=== PATIENT | female | born 1945 | race Caucasian/White ===

== ENCOUNTER 2018-09-30 08:14 | Day surgery (SDC) | payer OTHER ==
[2018-09-29 11:11] LABS: Urine Appearance CLOUDY; Urine Bilirubin NEGATIVE (NEG); Urine Blood NEGATIVE (NEG); Urine Color YELLOW; Urine Glucose NEGATIVE (NEG); Urine Protein NEGATIVE (NEG); Urine Urobilinogen 0.2 mg/dL (0.2-1.0)
[2018-09-29 11:12] LABS: Urine Microscopic Reflex NO UMIC
[2018-09-29 11:17] LABS: Absolute Lymphocytes (CBC) 1.7 K/uL (0.7-4.9); Absolute Monocytes 0.4 K/uL (0.1-1.3); Absolute Neutrophil 4.7 K/uL (1.8-8.0); Basophils % 0.8 % (0-1.3); Eosinophils % 1.6 % (0-4.4); Hematocrit 41.9 % (36.0-45.0); Lymphocytes % 24.8 % (15.3-44.8); MCH 32.7 pg (27.0-35.0); MCV 95.4 fL (80-100); MPV 10.1 fL (7.6-11.3); Monocytes % 5.6 % (3.3-12.3)
[2018-09-29 11:27] LABS: Potassium 3.9 mmol/L (3.5-5.1)
--- NOTE | 2018-09-29 12:08 | RAD REPORT ---
EXAM DESCRIPTION: Ramos Collins And Ashly (2 Views)09/29/2018 12:03 pm CLINICAL HISTORY: Preop for hand surgery COMPARISON: None FINDINGS: A 1 centimeter nodular opacity overlies the right upper lobe. Remainder lungs appear clear of acute infiltrate. The heart is normal size IMPRESSION: 1 centimeter nodular opacity overlying the right upper lobe may represent a pulmonary no dule or confluence of ribs and vessels. CT chest is recommended
--- NOTE | 2018-09-29 12:10 | RAD REPORT ---
EXAM DESCRIPTION: RAD - Hand Right 3 View - 09/29/2018 12:03 pm CLINICAL HISTORY: Right hand pain FINDINGS: No fracture or dislocation is seen. Mild narrowing involves DIP and PIP joints. Mild erosion involves the fifth DIP joint. Mild osteoarthritis involves the first carpometacarpal joint.
--- NOTE | 2018-09-29 12:11 | RAD REPORT ---
EXAM DESCRIPTION: RAD -Hand Left 3 View - 09/29/2018 12:03 pm CLINICAL HISTORY: Left hand pain FINDINGS: No fracture or dislocation is seen. Moderate osteoarthritis involves the first carpometacarpal joint. Mild narrowing involves DIP and PIP joints. Bones appear osteoporotic.
--- NOTE | 2018-09-29 14:01 | EKG ---
Test Date: 2018-09-29 Test Time: 10:59:46 Dianeticist: ROCKY MEASUREMENT RESULTS: Intervals: Rate: 85 NJ: 126 QRSD: 76 QT: 350 QTc: 416 [place]: P: 78 NJ: 126 QRS: 70 T: 67 INTERPRETIVE STATEMENTS: Sinus rhythm with occasional premature ventricular complexes Nonspecific ST abnormality Abnormal ECG Compared to ECG 10/24/2005 15:15:00 Ventricular premature complex(es) now present ST (T wave) deviation still present Electronically Signed On 09-29-18 14:00:51 ASSISTANT PORTFOLIO MANAGER by Anselmo Hinton
--- OUTSIDE RECORDS SUMMARY | 2018-09-30 08:17 | XMS REPORT | Clinical Summary ---
:1945 Author Organization [employer] Address [address] [place] [address] Care Team Providers Name Role Phone Carolina Bowman MD Primary Care Provider Allergies Active Allergy Reactions Severity Noted Date Comments Codeine 08/21/2018 Hydrocodone Other (See Comments), GI Intolerance High 08/21/2018 Medications Medication Sig Dispensed Refills Start Date End Date Status levothyroxine Take 125 mcg by 0 Active (SYNTHROID, LEVOXYL) mouth every 125 mcg tablet morning. estradiol (ESTRACE) 0.5 Take 0.5 mg by 0 Active MG tablet mouth daily. liothyronine (CYTOMEL) Take 25 mcg by 0 Active 25 MCG tablet mouth daily. tiotropium (SPIRIVA) 18 Place 1 capsule 0 Active mcg per inhalation into inhaler and capsule inhale once daily. pyridoxine, vitamin B6, Take 100 mg by 0 Active (B-6) 100 MG tablet mouth daily. NON FORMULARY Take by mouth 0 Active once. multivitamin liquid Take 5 mL by 0 Active mouth daily. TURMERIC, BULK, MISC once. 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 Last Filed Vital Signs Vital Sign Reading Time Taken Blood Pressure 162/77 08/21/2018 2:48 PM CDT Pulse 87 08/21/2018 2:48 PM CDT Temperature 36.5 C (97.7 F) 08/12/2018 10:22 AM CDT Respiratory Rate 17 08/21/2018 2:48 PM CDT Oxygen Saturation 96% 08/21/2018 2:38 PM CDT Inhaled Oxygen Concentration - - Weight 78.5 kg (173 lb) 08/21/2018 1:35 PM CDT Height 168.9 cm (5' 6.5") 08/21/2018 1:35 PM CDT Body Mass Index 27.5 08/21/2018 1:35 PM CDT Plan of Treatment Health Maintenance Due Date Last Done Comments BREAST CANCER SCREENING 1997 COLON CANCER SCREENING 1997 SHINGRIX VACCINE (1 of 2) 1997 ZOSTER VACCINE 2007 PNEUMOCOCCAL POLYSACCHARIDE VACCINE AGE 65 AND OVER 2012 PNEUMOCOCCAL-13 2012 INFLUENZA VACCINE 06/18/2018 Procedures Procedure Name Priority Date/Time Associated Diagnosis Comments MRI BRAIN WO Routine 08/21/2018 3:00 Bulbar motor neuron Results for this CONTRAST PM CDT disease (HCC) procedure are in the results section. COPPER LEVEL, SERUM Routine 08/13/2018 1:52 Bulbar motor neuron Results for this PM CDT disease procedure are in the results section. ZINC LEVEL, SERUM Routine 08/13/2018 1:52 Bulbar motor neuron Results for this PM CDT disease procedure are in the results section. THYROID STIMULATING Routine 08/13/2018 1:52 Bulbar motor neuron Results for this HORMONE PM CDT disease procedure are in the results section. VITAMIN B12 LEVEL Routine 08/13/2018 1:52 Bulbar motor neuron Results for this PM CDT disease procedure are in the results section. SYPHILIS TREPONEMAL Routine 08/13/2018 1:52 Bulbar motor neuron Results for this IGG PM CDT disease procedure are in the results section. VITAMIN E LEVEL, Routine 08/13/2018 1:52 Bulbar motor neuron Results for this PLASMA OR SERUM PM CDT disease procedure are in the results section. RHEUMATOID FACTOR Routine 08/13/2018 1:52 Bulbar motor neuron Results for this PM CDT disease procedure are in the results section. ERLIN Routine 08/13/2018 1:52 Bulbar motor neuron Results for this PM CDT disease procedure are in the results section. MRI CERVICAL SPINE Routine 08/12/2018 11:56 Cervical spondylosis Results for this WO CONTRAST AM CDT with myelopathy procedure are in the results section. after 09/29/2017 Results MRI Brain Wo Contrast (08/21/2018 3:00 PM CDT) Narrative Performed At EXAMINATION: MRI BRAIN WO CONTRAST HM [facility] CLINICAL HISTORY: G12.20 Motor neuron diseaseunspecified, G12.20 COMPARISON:None TECHNIQUE: Multiplanar and multisequence MRI imaging of the brain was obtained without contrast. Intravenous conscious sedation was obtained with 1 mg Versed and 50 mcg of fentanyl. The patient was cont inuously monitored throughout the exam and her vital signs prior to, during and after the exam were documented in the nurse's notes. FINDINGS: There is no evidence of acute infarct, intracranial hemorrhage or mass, hydrocephalus or midline shift. There is nonspecific enlargement of the ventricles and extra-axial space and nonspecific white mat ter changes. The upper sella is partially empty. The left lateral ventricle is larger than the right. 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 I cannot normal pressure hydrocephalus on this exam although there is no definite evidence of normal pressure hydrocephalus. The orbits, sinuses and mastoid air cells do not show abnormality. The nasal septum is deviated towards the right. IMPRESSION: No acute findings in the brain. Chronic appearing changes in the brain. I can' t exclude normal pressure hydrocephalus on this exam although there is no definite evidence of normal pressure hydrocephalus. [id number] Procedure Note Interface, Radiology Results Incoming - 08/21/2018 3:23 PM CDT EXAMINATION: MRI BRAIN WO CONTRAST CLINICAL HISTORY: G12.20 Motor neuron disease unspecified, G12.20 COMPARISON: None TECHNIQUE: Multiplanar and multisequence MRI imaging of the brain was obtained without contrast. Intravenous conscious sedation was obtained with 1 mg Versed and 50 mcg of fentanyl. The patient was continuously monitored throughout the exam and her vital signs prior to, during and after the exam were documented in the nurse's notes. FINDINGS: There is no evidence of acute infarct, intracranial hemorrhage or mass, hydrocephalus or midline shift. There is nonspecific enlargement of the ventricles and extra-axial space and nonspecific white matter changes. The upper sella is partially empty. The left lateral ventricle is larger than the right. 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 I cannot normal pressure hydrocephalus on this exam although there is no definite evidence of normal pressure hydrocephalus. The orbits, sinuses and mastoid air cells do not show abnormality. The nasal septum is deviated towards the right. IMPRESSION: No acute findings in the brain. Chronic appearing changes in the brain. I can' t exclude normal pressure hydrocephalus on this exam although there is no definite evidence of normal pressure hydrocephalus. [facility]-[id number] Performing Organization Address City/[facility]/Zipcode Phone Number [facility] [address] [place] [address] Syphilis treponemal IgG (08/13/2018 1:52 PM CDT) Syphilis treponemal IgG Non-reactiveComment: Non-reactive [facility] DEPARTMENT OF Non-reactive: No PATHOLOGY AND GENOMIC serological evidence of MEDICINE Syphilis infection Specimen Serum Performing Organization Address [facility] Phone Number [facility] DEPARTMENT OF PATHOLOGY AND [address] [place] [id number] GENOMIC MEDICINE Copper level, serum (08/13/2018 1:52 PM CDT) Copper 139 80 - 155 ug/dL [facility] Comment: INTERPRETIVE INFORMATION: Copper, Serum or Plasma Serum copper may be elevated with infection, inflammation, stress, and copper supplementation. In females, elevated copper may also be caused by oral contraceptives and (concentrations may be elevated up to 3 times normal during the third trimester). Serum copper may be reduced by use of corticosteroids and zinc and by malnutrition or malabsorption. See Compliance Statement B at www.[employer]/cs Performed by [facility], [address] [place] [address], [place] [id number] www.[employer], Baltazar Hopkins MD - Lab. Director Specimen Blood Performing Organization Address City/[facility] Phone Number [facility] [address] [place] [address] Zinc level, serum (08/13/2018 1:52 PM CDT) Zinc 62 60 - 120 ug/dL [facility] Comment: INTERPRETIVE INFORMATION: Zinc, Serum or Plasma Circulating zinc concentrations are dependent on albumin status and are depressed with malnutrition. Zinc may also be lowered with infection, inflammation, stress, oral contraceptives, and . Zinc may be elevated with zinc supplementation or fasting. Elevated zinc concentrations may interfere with copper absorption. Test developed and characteristics determined by [facility]. See Compliance Statement B: [employer]/ Performed by [facility], [address] [place] [id number] [email or web address].[employer], Baltazar Hopkins MD - Lab. Director Specimen Blood Performing Organization Address [facility] Phone Number [facility] [address] [place] [address] Rheumatoid factor (08/13/2018 1:52 PM CDT) Rheumatoid factor <10 0 - 13 IU/mL [facility] DEPARTMENT OF PATHOLOGY AND GENOMIC MEDICINE Specimen Plasma specimen Performing Organization Address [facility] Phone Number [facility] DEPARTMENT OF PATHOLOGY AND [address] [place] [address] ERLIN (08/13/2018 1:52 PM CDT) ERLIN screen Negative Negative [facility] DEPARTMENT OF PATHOLOGY AND Comment: [facility] The ERLIN is negative, however, cytoplasmic staining was observed. Fluorescence in the cytoplasm may be seen in patients with polymyositis and dermatomyositis, primary biliary cirrhosis, scleroderma and systemic sclerosis, systemic lupus erythematosus, and autoimmune hepatitis. Clinical correlation is recommended. Specimen Blood Performing Organization Address [facility] Phone Number [facility] DEPARTMENT OF PATHOLOGY AND [address] [place] [address] Vitamin E level, plasma or serum (08/13/2018 1:52 PM CDT) Alpha-tocopherol mg/L 10.8 5.5 - 18.0 mg/L [facility] Comment: Test developed and characteristics determined by [facility]. See Compliance Statement B: [employer]/CS Gamma-tocopherol mg/L 0.5 0.0 - 6.0 mg/L [facility] Comment: Performed by [facility], [address], [place] [id number] www.[employer], Baltazar Hopkins MD - Lab. Director Specimen Plasma specimen Performing Organization Address [facility]/Zipcode Phone Number [facility] [address] [facility] [place] [address] Thyroid stimulating hormone (08/13/2018 1:52 PM CDT) TSH <0.01 (L) 0.27 - 4.20 uIU/mL [facility] DEPARTMENT OF PATHOLOGY AND [facility] Specimen Plasma specimen Performing Organization Address City/State/Zipcode Phone Number [facility] DEPARTMENT OF PATHOLOGY [address] [place] [address] AND [facility] Vitamin B12 level (08/13/2018 1:52 PM CDT) Vitamin B12 1,038 (H) 211 - 946 pg/mL [facility] DEPARTMENT OF PATHOLOGY Comment: AND GENOMIC MEDICINE Significant overlap exists between normal and deficiency states. However, most patients with deficiencies will have Serum B12 <200 pg/mL. Specimen Serum Performing Organization Address City/[facility]/Zipcode Phone Number [facility] DEPARTMENT OF PATHOLOGY AND [address] [place] [address] [facility] MRI Cervical Spine Wo Contrast (08/12/2018 11:56 AM CDT) Narrative Performed At EXAMINATION: MRI CERVICAL SPINE WO CONTRAST [facility] CLINICAL HISTORY: M47.12 Other spondylosis with myelopathycervical region, m47.12 COMPARISON:None TECHNIQUE: Multiplanar multisequence noncontrast enhanced examination was performed of the cervical spine. FINDINGS: Vertebral body heights are maintained. The cervicomedullary junction is unremarkable. No cord signal abnormality identified. No focal marrow lesions. No masses are present in the visualized prevertebral soft tissues. Cervical alignment is preserved with normal lordosis. There is no significant spondylolisthesis. Axial images through the disc spaces demonstrate the following: C1-C2: There is narrowing of the atlantoaxial interval with spurring. There is no significant stenosis. C2-C3: No significant posterior disc disease, spinal canal or neural foraminal stenosis. C3-C4: There is loss of disc height with posterior spondylosis with mild canal narrowing. Uncovertebral arthrosis and facet disease a results in mild right and gwro-lc-ejikprkd left foraminal narrowing. C4-C5: There is mild spondylosis with mild disc desiccation and bulge without stenosis at this level. C5-C6: There is loss of disc height with posterior spondylosis with mild canal narrowing to 8 mm. Uncovertebral arthrosis and facet disease a results in at least moderate bilateral foraminal narrowing. Correlate for C6 radiculopathies. C6-C7: There is posterior spondylosis without canal narrowing. The foramina are patent. C7-T1: No significant posterior disc disease, spinal canal or neural foraminal stenosis. At T3 there is mild chronic superior endplate depression. No acute osseous abnormality identified. IMPRESSION: There is multilevel spondylosis most prominent at C5-6 with at least moderate bilateral foraminal narrowing. Correlate for C6 radiculopathies. Other levels less significant spondylosis are detailed above. [facility]-[id number] Procedure Note Hm Interface, Radiology Results Incoming - 08/12/2018 2:52 PM CDT EXAMINATION: MRI CERVICAL SPINE WO CONTRAST CLINICAL HISTORY: M47.12 Other spondylosis with myelopathy cervical region, m47.12 COMPARISON: None TECHNIQUE: Multiplanar multisequence noncontrast enhanced examination was performed of the cervical spine. FINDINGS: Vertebral body heights are maintained. The cervicomedullary junction is unremarkable. No cord signal abnormality identified. No focal marrow lesions. No masses are present in the visualized prevertebral soft tissues. Cervical alignment is preserved with normal lordosis. There is no significant spondylolisthesis. Axial images through the disc spaces demonstrate the following: C1-C2: There is narrowing of the atlantoaxial interval with spurring. There is no significant stenosis. C2-C3: No significant posterior disc disease, spinal canal or neural foraminal stenosis. C3-C4: There is loss of disc height with posterior spondylosis with mild canal narrowing. Uncovertebral arthrosis and facet disease a results in mild right and glep-po-trfkymyf left foraminal narrowing. C4-C5: There is mild spondylosis with mild disc desiccation and bulge without stenosis at this level. C5-C6: There is loss of disc height with posterior spondylosis with mild canal narrowing to 8 mm. Uncovertebral arthrosis and facet disease a results in at least moderate bilateral foraminal narrowing. Correlate for C6 radiculopathies. C6-C7: There is posterior spondylosis without canal narrowing. The foramina are patent. C7-T1: No significant posterior disc disease, spinal canal or neural foraminal stenosis. At T3 there is mild chronic superior endplate depression. No acute osseous abnormality identified. IMPRESSION: There is multilevel spondylosis most prominent at C5-6 with at least moderate bilateral foraminal narrowing. Correlate for C6 radiculopathies. Other levels less significant spondylosis are detailed above. [facility]-[id number] Performing Organization Address City/State/Zipcode Phone Number [facility] [address] [place] [address] after 09/29/2017 Insurance Payer Benefit Plan / Group Subscriber ID Type Phone Address [employer]NA MEDICARE AETNA MEDICARE HMO/[facility] xxxxxxxx HMO Advance Directives Patient has advance care planning documents on file. For more information, please contact:Silvano Araya[address] [place] [address]
[2018-09-30] MEDS ORDERED: CEFAZOLIN/SWI 1gm 1 GM/10 ML SYR ONE (08:36)
[2018-09-30] MEDS ORDERED: Ringers Lactate 1,000 ML IV ONE (08:36)
[2018-09-30] MEDS ORDERED: FENTANYL CITR 100 MCG/2 ML ONE (10:14)
[2018-09-30] MEDS ORDERED: PROPOFOL 200 MG/20 ML VIAL IV ONE (10:14)
[2018-09-30] MEDS ORDERED: LIDOCAINE 1% MPF 2 ML AMPULE ONE (10:15)
[2018-09-30] MEDS: MEPERIDINE HCL 50 MG/ML AMP ONE ×3 (11:10→11:25)
--- NOTE | 2018-09-30 12:28 | OP ---
Surgeon: Emerson Lamb MD Rn Discharge: Tristan. Preoperative Diagnoses: Dupuytren contracture of the nodule of the left palm, trigger finger left mi ddle and left ring. Postoperative Diagnoses: Dupuytren contracture of the nodule of the left palm, trigger finger left m iddle and left ring. Procedures: 1.Fasciectomy in the palm on left with excision of A1 pulleys of the ring and middle finger. 2.Tenolysis of the superficialis profundus of the ring and middle finger. Anesthesia: General. Procedure In Detail: After satisfactory induction of general anesthesia, the hand was prepped with B etadine scrub, Betadine paint. Dry sterile drapes were placed in the usual manner. The arm was elev ated, exsanguinated with an Esmarch, tourniquet inflated to 250 mmHg. Hand was placed on the [place] table. A zigzag incision made over the palm surface extended to the carpal tunnel incision proximal ly and distally zigzagging down to include the pits from the palmar Dupuytren contracture and extendi ng toward the A1 pulleys of the middle finger. Flaps were elevated back to the skin level and then t he palmar fasciectomy was performed with a 15-blade. The nerve roots were identified as well as vasc ular supply and left intact. Dissected down distally all the way to the A1 pulleys. The palmar fasc iectomy was done first and then the A1 pulleys were released in the middle and ring fingers. The ten dons were placed through a range of motion. At that time, underwent tenosynovectomy because there we re dense adhesions between the superficialis and profunda of the finger. After this was done, tourni quet released. Electrocautery was used for hemostasis, and the wound was closed with 4-0 Prolene lawanda tical mattress, half buried mattress simple sutures. Dressed with Xeroform, 2-inch Jose Manuel, Kerlix. The pat ient tolerated the procedure well. SHUKRI/JOE Voice ID: [id number] Report ID: [id number]
== END 2018-09-30 12:45 | disposition home or self-care (01) ==
LOC: OR 08:14
PROVIDERS: ATTEND Specialist
PROC: 0LN80ZZ Release Left Hand Tendon, Open Approach (ICD-10-PCS; 2018-09-30)
PROC: 0LN80ZZ Release Left Hand Tendon, Open Approach (ICD-10-PCS; 2018-09-30)
PROC: 0LN80ZZ Release Left Hand Tendon, Open Approach (ICD-10-PCS; 2018-09-30)
PROC: 0JNK0ZZ Release Left Hand Subcutaneous Tissue and Fascia, Open Approach (ICD-10-PCS; principal; 2018-09-30 09:45)
PROC: 0LN80ZZ Release Left Hand Tendon, Open Approach (ICD-10-PCS; 2018-09-30 09:45)
DX: M65.332 Trigger finger, left middle finger (principal); M65.342 Trigger finger, left ring finger; M72.0 Palmar fascial fibromatosis [Dupuytren]; J44.9 Chronic obstructive pulmonary disease, unspecified; E05.00 Thyrotoxicosis with diffuse goiter without thyrotoxic crisis or storm; G12.21 Amyotrophic lateral sclerosis; Z88.6 Allergy status to analgesic agent
CPT/HCPCS: 26045; 26055 ×2; 26440 ×2; 36415; 71046; 73130 ×2; 80048; 81003; 85025; 88304; 93005; J0690; J2001; J2175; J2704; J3010; 88305

== ENCOUNTER 2018-10-04 17:31 | Emergency (ER) | payer OTHER ==
--- OUTSIDE RECORDS SUMMARY | 2018-10-04 17:33 | XMS REPORT | Clinical Summary ---
:1945 Author Organization [facility] Address [address] [place] [address] Care Team Providers Name Role Phone Carolina [...] Cervical spondylosis with myelopathy (Primary Dx) after 10/03/2017 Social History Tobacco Use Types Packs/Day Years [...] procedure are in the results section. after 10/03/2017 Results MRI Brain Wo Contrast (08/21/2018 3:00 [...] no definite evidence of normal pressure hydrocephalus. [id number] Procedure Note Interface, Radiology Results Incoming - [...] no definite evidence of normal pressure hydrocephalus. [facility]-[id number] Performing Organization Address City/[facility]/Zipcode Phone Number [facility] [address] [place] [address] Syphilis treponemal IgG (08/13/2018 1:52 PM CDT) Syphilis treponemal IgG Non-reactiveComment: Non-reactive [facility] DEPARTMENT OF Non-reactive: No PATHOLOGY AND GENOMIC serological evidence of MEDICINE Syphilis infection Specimen Serum Performing Organization Address [facility] Cent[facility] Phone Number [facility] DEPARTMENT OF PATHOLOGY AND [address] [place] [id number] GENOMIC MEDICINE Copper level, serum (08/13/2018 1:52 PM CDT) Copper 139 80 - 155 ug/dL [facility] Comment: INTERPRETIVE INFORMATION: Copper, Serum or [...] or malabsorption. See Compliance Statement B at [email or web address] Performed by [facility], [address], [place] [id number] www.[email or web address], Baltazar Hopkins MD - Lab. Director Specimen Blood Performing Organization Address City/[facility] Centercode Phone Number [facility] [address] [place] [address] Zinc level, serum (08/13/2018 1:52 PM CDT) [...] absorption. Test developed and characteristics determined by [facility]. See Compliance Statement B: Zayo/ Performed by [facility], [address] [place] [id number] www.[email or web address], Baltazar Hopkins MD - Lab. Director Specimen Blood Performing Organization Address [facility] Phone Number [facility] [address] [place] [address] Rheumatoid factor (08/13/2018 1:52 PM CDT) Rheumatoid factor <10 0 - 13 IU/mL [facility] DEPARTMENT OF PATHOLOGY AND GENOMIC MEDICINE Specimen Plasma specimen Performing Organization Address [facility] Phone Number [facility] DEPARTMENT OF PATHOLOGY AND [address] [place] [address] ERLIN (08/13/2018 1:52 PM CDT) ERLIN screen Negative Negative [facility] DEPARTMENT OF PATHOLOGY AND Comment: [facility] The ERLIN is negative, however, cytoplasmic staining was observed. Fluorescence in the cytoplasm may be seen in patients with polymyositis and dermatomyositis, primary biliary cirrhosis, scleroderma and systemic sclerosis, systemic lupus erythematosus, and autoimmune hepatitis. Clinical correlation is recommended. Specimen Blood Performing Organization Address [facility] Phone Number [facility] DEPARTMENT OF PATHOLOGY AND [address] [place] [address] Vitamin E level, plasma or serum (08/13/2018 1:52 PM CDT) Alpha-tocopherol mg/L 10.8 5.5 - 18.0 mg/L [facility] Comment: Test developed and characteristics determined by [facility]. See Compliance Statement B: [employer].Dr. TATTOFF/CS Gamma-tocopherol mg/L 0.5 0.0 - 6.0 mg/L [facility] Comment: Performed by [facility], [address], [place] [id number] www.[email or web address], Baltazar Hopkins MD - Lab. Director Specimen Plasma specimen Performing Organization Address [facility]/Zipcode Phone Number [facility] [address] [facility] [place] [address] Thyroid stimulating hormone (08/13/2018 1:52 PM CDT) TSH <0.01 (L) 0.27 - 4.20 uIU/mL [facility] DEPARTMENT OF PATHOLOGY AND [facility] MED[facility]INE Specimen Plasma specimen Performing Organization Address City/State/Zipcode Phone Number [facility] DEPARTMENT OF PATHOLOGY [address] [place] [address] AND [facility] Vitamin B12 level (08/13/2018 1:52 PM CDT) Vitamin B12 1,038 (H) 211 - 946 pg/mL [facility] DEPARTMENT OF PATHOLOGY Comment: AND GENOMIC MEDICINE Significant overlap exists between normal and deficiency states. However, most patients with deficiencies will have Serum B12 <200 pg/mL. Specimen Serum Performing Organization Address City/[facility]/Zipcode Phone Number [facility] DEPARTMENT OF PATHOLOGY AND [address] [place] [address] [facility] MRI Cervical Spine Wo Contrast (08/12/2018 11:56 [...] disease a results in mild right and [id number] left foraminal narrowing. C4-C5: There is mild [...] levels less significant spondylosis are detailed above. [facility]-[id number] Procedure Note Hm Interface, Radiology Results Incoming [...] disease a results in mild right and pwkr-wj-rtdopyns left foraminal narrowing. C4-C5: There is mild [...] levels less significant spondylosis are detailed above. [facility]-[id number] Performing Organization Address City/State/Zipcode Phone Number [facility] [address] [place] [address] after 10/03/2017 Insurance Payer Benefit Plan / Group Subscriber ID Type Phone Address A[employer]NA MEDICARE AETNA MEDICARE HMO/PPO [facility] xxxxxxxx HMO Advance Directives Patient has advance care planning documents on file. For more information, please contact:Silvano Araya[address] [place] [address]
[2018-10-04] MEDS ORDERED: ONDANSETRON 4 MG/2 ML VIAL ONE (18:37)
[2018-10-04] MEDS ORDERED: MORPHINE 4 MG/ML SYR ONE (18:37)
--- NOTE | 2018-10-04 18:39 | RAD REPORT ---
EXAM DESCRIPTION: RAD - Chest Single View - 10/04/2018 6:33 pm CLINICAL HISTORY: abdominal pain Chest pain. COMPARISON: Chest Pa And Lat (2 Views) dated 09/29/2018 FINDINGS: Portable technique limits examination quality. Diffuse emphysema is present. May not previously noted in the right upper lobe appears similar to viraj or radiograph. The heart is normal in size. No displaced fractures. IMPRESSION: Prominent COPD.
[2018-10-04 18:45] LABS: Absolute Lymphocytes (CBC) 0.7 K/uL (0.7-4.9); Absolute Monocytes 0.6 K/uL (0.1-1.3); Absolute Neutrophil 10.3 K/uL (1.8-8.0); Basophils % 0.9 % (0-1.3); Eosinophils % 0.2 % (0-4.4); Lymphocytes % 5.8 % (15.3-44.8); MCH 32.6 pg (27.0-35.0); MCV 95.4 fL (80-100); MPV 9.2 fL (7.6-11.3); Monocytes % 5.4 % (3.3-12.3); RBC Red Blood Cell Count 4.09 M/uL (3.86-4.86)
[2018-10-04 19:04] LABS: Protime INR 1.15
[2018-10-04 19:13] LABS: ALT/SGPT 23 U/L (12-78); AST/SGOT 15 U/L (15-37); Albumin 3.3 g/dL (3.4-5.0); Alkaline Phosphatase 116 U/L (45-117); BUN Blood Urea Nitrogen 19 mg/dL (7-18); Bicarbonate 25 mmol/L (21-32); Bilirubin Direct 0.2 mg/dL (0-0.2); Bilirubin Total 0.7 mg/dL (0.2-1.0); Glucose Level 113 mg/dL (74-106); Lipase 172 U/L (73-393); Magnesium 1.7 mg/dL (1.8-2.4); Potassium 3.5 mmol/L (3.5-5.1); Protein, Total 6.7 g/dL (6.4-8.2); Sodium Level 139 mmol/L (136-145)
[2018-10-04] MEDS ORDERED: LORazepam 2 MG/ML VIAL ONE (19:49)
[2018-10-04] MEDS ORDERED: MAGNESIUM SULFATE 1 gm IVPB 1 GM/100 ML BAG IV ONE (19:49)
[2018-10-04] MEDS ORDERED: NA CHLORIDE 0.9% 1,000 ML ONE (19:49)
--- NOTE | 2018-10-04 21:04 | RAD REPORT ---
EXAM DESCRIPTION: CTAbdomen Pelvis W Contrast - 10/04/2018 8:47 pm CLINICAL HISTORY: Abdominal pain. CONSTIPATION COMPARISON: No comparisons TECHNIQUE: Biphasic CT imaging of the abdomen and pelvis was performed with 100 ml non-ionic IV cont rast. All CT scans are performed using dose optimization technique as appropriate and may include automated exposure control or mA/KV adjustment according to patient size. FINDINGS: The lung bases are clear.Small hiatal hernia. The liver, spleen, pancreas, adrenal glands and kidneys are within normal limits. No bowel obstruction, free air, free fluid or abscess. A large amount of stool is retained in the rec doug. The appendix is not identified as a discrete structure, however, no secondary findings of append icitis are identified. No evidence of significant lymphadenopathy. Lower lumbar degenerative changes are present. IMPRESSION: Rectal fecal impaction is suspected.
[2018-10-04] MEDS ORDERED: LIDOCAINE VISCOUS 2% SOLN 15 ML UDC ONE (21:19)
--- NOTE | 2018-10-04 21:43 | EDPHYS ---
Physician Documentation [facility] Name: Val Parks Age: 72 yrs Sex: Female : 1945 Arrival Date: 10/04/2018 Time: 17:35 Bed 13 Private MD: Carolina Bowman ED Physician Lux Merchant HPI: 10/04 18:15 This 72 yrs old Female presents to ER via Wheelchair with complaints of cp Constipation. 18:15 The patient presents to the emergency department with bleeding from the rectum/anus, cp pain in the rectal area, that is moderate. 18:15 Onset: The symptoms/episode began/occurred gradually. cp 18:15 Associate signs and symptoms: Pertinent positives: constipation, blood in stool, cp Pertinent negatives: abdominal pain, urinary retention. Patient reports having hand surgery this past Saturday and since surgery has been taking prescribed hydrocodone. Patient reports no bowel movement since surgery and feels like she has stool impaction in rectum. Patient reports noticing liquid stool with blood. Historical: - Allergies: 17:40 Codeine; la1 - PMHx: 17:40 None; la1 - Immunization history:: Adult Immunizations up to date. - Social history:: Smoking status: Patient/guardian denies using tobacco. - Ebola Screening: : No symptoms or risks identified at this time. ROS: 18:20 Constitutional: Negative for chills, fever, poor PO intake. cp 18:20 Eyes: Negative for injury, pain, redness, and discharge. cp 18:20 ENT: Negative for drainage from ear(s), ear pain, sore throat, difficulty swallowing, difficulty handling secretions. 18:20 Cardiovascular: Negative for chest pain. 18:20 Respiratory: Negative for cough, shortness of breath, wheezing. 18:20 Abdomen/GI: Positive for constipation, rectal bleeding, Negative for abdominal pain, nausea, vomiting, black/tarry stool. 18:20 Back: Negative for pain at rest, pain with movement. 18:20 : Negative for urinary symptoms. 18:20 Skin: Negative for cellulitis, rash. 18:20 Neuro: Negative for altered mental status, headache, syncope, near syncope, weakness. 18:20 All other systems are negative. Exam: 18:28 Constitutional: The patient appears in no acute distress, alert, awake, cp non-diaphoretic, non-toxic, well developed, well nourished, uncomfortable. 18:28 Head/Face: Normocephalic, atraumatic. cp 18:28 Eyes: Periorbital structures: appear normal, Conjunctiva: normal, no exudate, no injection, Sclera: no appreciated abnormality, Lids and lashes: appear normal, bilaterally. 18:28 ENT: External ear(s): are unremarkable, Nose: is normal, Mouth: Lips: moist, Oral mucosa: pink and intact, moist, Posterior pharynx: is normal, airway is patent, no erythema, no exudate, Voice: is normal. 18:28 Neck: ROM/movement: is normal, is supple, without pain, no range of motions limitations, no nuchal rigidity. 18:28 Chest/axilla: Inspection: normal, Palpation: is normal, no crepitus, no tenderness. 18:28 Cardiovascular: Rate: tachycardic, Rhythm: regular, Edema: is not appreciated, JVD: is not appreciated. 18:28 Respiratory: the patient does not display signs of respiratory distress, Respirations: normal, no use of accessory muscles, no retractions, no splinting, no tachypnea, labored breathing, is not present, Breath sounds: are clear throughout, no decreased breath sounds, no stridor, no wheezing. 18:28 Abdomen/GI: Inspection: abdomen appears normal, Bowel sounds: active, all quadrants, Palpation: soft, in all quadrants, mild abdominal tenderness, in all quadrants, rebound tenderness, is not appreciated, voluntary guarding, is not appreciated, involuntary guarding, is not appreciated, Rectal exam: Stool: brown, guaiac positive, hemorrhoid(s), external, with inflammation, with pain, fecal impaction, that is moderate, the exam is chaperoned by the nurse. 18:28 Back: pain, is absent, ROM is normal. 18:28 Skin: cellulitis, is not appreciated, no rash present. 18:28 Neuro: Orientation: to person, place \T\ time. Mentation: is normal, Cerebellar function: is grossly normal, Motor: moves all fours, strength is normal, Sensation: is normal. Vital Signs: 17:40 BP 157 / 81; Pulse 125; Resp 18; Temp 97.3; Pulse Ox 98% on R/A; la1 18:42 BP 148 / 80; Pulse 120; Resp 18; Pulse Ox 96% on R/A; hj 19:42 BP 139 / 82; Pulse 114; Resp 18; Pulse Ox 95% on R/A; jb4 20:59 BP 113 / 66; Pulse 110; Resp 16; Pulse Ox 93% on R/A; jb4 21:35 BP 128 / 65; Pulse 109; Resp 16; Pulse Ox 95% on R/A; jb4 MDM: 17:43 Patient medically screened. cp 21:40 Data reviewed: vital signs, nurses notes, lab test result(s), radiologic studies, CT cp scan. 21:40 Counseling: I had a detailed discussion with the patient and/or guardian regarding: the cp historical points, exam findings, and any diagnostic results supporting the discharge/admit diagnosis, lab results, radiology results, to return to the emergency department if symptoms worsen or persist or if there are any questions or concerns that arise at home. Response to treatment: the patient's symptoms have markedly improved after treatment, VSS. Patient with BM while in ED after digital disimpaction. Will discharge to home for continued monitoring. 10/04 18:09 Order name: Basic Metabolic Panel 10/04 18:09 Order name: CBC with Diff; Complete Time: 19:25 10/04 19:25 Interpretation: Normal except: WBC 11.7; PLT 121; FLORI% 87.7; LYM% 5.8; NEUT A 10.3. 10/04 18:09 Order name: Creatinine for Radiology; Complete Time: 19:25 10/04 18:09 Order name: Hepatic Function; Complete Time: 19:25 10/04 19:27 Interpretation: Normal except: ALB 3.3; A/G 1.0. 10/04 18:09 Order name: Lipase; Complete Time: 19:25 cp 10/04 18:09 Order name: PT-INR; Complete Time: 19:25 10/04 19:27 Interpretation: PT 13.6; Reviewed. 10/04 18:09 Order name: XRAY Chest (1 view); Complete Time: 19:25 10/04 18:09 Order name: Ptt, Activated; Complete Time: 19:25 10/04 18:09 Order name: Magnesium; Complete Time: 19:25 10/04 18:10 Order name: Basic Metabolic Panel; Complete Time: 19:25 EDMS 10/04 19:27 Interpretation: Normal except: GLUC 113; BUN 19. cp 10/04 18:21 Order name: Occult Blood--Ancillary; Complete Time: 21:07 aa5 10/04 18:21 Order name: CT Abd/Pelvis - W/Contrast: give oral contrast; Complete Time: 21:07 cp 10/04 18:09 Order name: IV Saline Lock; Complete Time: 18:20 cp 10/04 18:09 Order name: Labs collected and sent; Complete Time: 18:20 cp Administered Medications: 18:35 Drug: Zofran 4 mg Route: IVP; Site: right antecubital; hj 19:07 Follow up: Response: No adverse reaction; Pain is decreased jb4 18:35 Drug: morphine 2 mg Route: IVP; Site: right antecubital; hj 19:08 Follow up: Response: No adverse reaction; Pain is decreased jb4 19:58 Drug: Magnesium Sulfate 1 grams Route: IVPB; Infused Over: 1 hrs; Site: right jb4 antecubital; 21:00 Follow up: Response: No adverse reaction; IV Status: Completed infusion jb4 19:59 Drug: NS 0.9% 500 ml Route: IV; Rate: bolus; Site: right antecubital; jb4 20:30 Follow up: Response: No adverse reaction; IV Status: Completed infusion jb4 20:15 Drug: NS 0.9% 1000 ml Route: IV; Rate: 100 ml/hr; Site: right antecubital; jb4 21:34 Follow up: Response: No adverse reaction; IV Status: Completed infusion jb4 20:30 Drug: Ativan 0.5 mg Route: IVP; Site: right antecubital; jb4 21:35 Follow up: Response: No adverse reaction; Anxiety decreased jb4 21:27 Drug: Lidocaine Gel 2 % 1 ea Volume: 15 ml; Route: Mucous Membrane; jb4 21:35 Follow up: Response: No adverse reaction jb4 21:33 Drug: NS 0.9% 500 ml Route: IV; Rate: bolus; Site: right antecubital; jb4 21:59 Follow up: Response: No adverse reaction; IV Status: Completed infusion jb4 21:53 Drug: Anusol-HC 25 mg 25 mg Route: NH; jb4 21:53 Follow up: Response: No adverse reaction jb4 Point of Care Testing: Guaiac: 18:20 Stool Guaiac: Positive; Stool Hemoccult Control: Pass; aa5 18:20 Completed by SALLY Syed. External hemorrhoid was noted. aa5 Disposition: 10/04/18 21:41 Discharged to Home. Impression: Fecal impaction. - Condition is Stable. - Discharge Instructions: Constipation, Adult, Hemorrhoids, Fecal Impaction. - Prescriptions for Miralax 17 gram/dose Oral - take 1 packet by ORAL route once daily for 14-21 days dilute powder in 8 ounces of water or juice; 20 packet. - Medication Reconciliation Form, Thank You Letter, Antibiotic Education, Prescription Opioid Use form. - Follow up: Private Physician; When: 1 - 2 days; Reason: Recheck today's complaints. - Problem is new. - Symptoms have improved. Addendum: 10/06/2018 11:10 Co-signature as Attending Physician, Lux Merchant MD. g s Signatures: Dispatcher [employer] EDMS Rodríguez Calix RN RN la1 Shyam Bee RN RN Kwesi Chu PA PA cp Bryson, James RN RN jb4 Lux Merchant MD MD gs Corrections: (The following items were deleted from the chart) 10/04 22:02 21:41 10/04/2018 21:41 Discharged to Home. Impression: Fecal impaction. Condition is jb4 Stable. Forms are Medication Reconciliation Form, Thank You Letter, Antibiotic Education, Prescription Opioid Use. Follow up: Private Physician; When: 1 - 2 days; Reason: Recheck today's complaints. Problem is new. Symptoms have improved. cp
--- NOTE | 2018-10-04 21:43 | ER ---
Nurse's Notes [facility] Name: Val Parks Age: 72 yrs Sex: Female : 1945 Arrival Date: 10/04/2018 Time: 17:35 Bed 13 Private MD: Carolina Bowman Diagnosis: Fecal impaction Presentation: 10/04 17:39 Presenting complaint: Patient states: I had hand surgery on Saturday and have been on la1 norco, I have not had a BM since then and now I am just having small amounts of blood come out. Pt denies vomiting. reports she feels like the stool is right at her rectum. Transition of care: patient was not received from another setting of care. Onset of symptoms was October 04, 2018. Risk Assessment: Do you want to hurt yourself or someone else? Patient reports no desire to harm self or others. Initial Sepsis Screen: Does the patient meet any 2 criteria? No. Patient's initial sepsis screen is negative. Does the patient have a suspected source of infection? No. Patient's initial sepsis screen is negative. Care prior to arrival: None. 17:39 Method Of Arrival: Wheelchair la1 17:39 Acuity: ZOHRA 3 la1 Historical: - Allergies: 17:40 Codeine; la1 - PMHx: 17:40 None; la1 - Immunization history:: Adult Immunizations up to date. - Social history:: Smoking status: Patient/guardian denies using tobacco. - Ebola Screening: : No symptoms or risks identified at this time. Screenin:47 Abuse screen: Denies threats or abuse. Denies injuries from another. Nutritional hj screening: No deficits noted. Tuberculosis screening: No symptoms or risk factors identified. Fall Risk None identified. Assessment: 17:46 General: Appears in no apparent distress. uncomfortable, Behavior is calm, cooperative, hj appropriate for age. Pain: Denies pain. Neuro: Level of Consciousness is awake, alert, obeys commands, Oriented to person, place, time, situation, Appropriate for age. Cardiovascular: Capillary refill < 3 seconds Patient's skin is warm and dry. Respiratory: Airway is patent Respiratory effort is even, unlabored, Respiratory pattern is regular, symmetrical. GI: Abdomen is non-distended, Bowel sounds present X 4 quads. Abd is soft and non tender Abd is soft Reports constipation. : No signs and/or symptoms were reported regarding the genitourinary system. EENT: No signs and/or symptoms were reported regarding the EENT system. Derm: No signs and/or symptoms reported regarding the dermatologic system. Musculoskeletal: No signs and/or symptoms reported regarding the musculoskeletal system. 18:23 Reassessment: provider with NIDHI Groves, for rectal exam;. hj 18:45 Reassessment: pt done with contrast, industrial engineering technician notified;. hj 20:00 Reassessment: Patient appears in no apparent distress at this time. Patient and/or jb4 family updated on plan of care and expected duration. Pain level reassessed. Patient is alert, oriented x 3, equal unlabored respirations, skin warm/dry/pink. Pt has family at the bedside. assisted with bedpan. 20:59 Reassessment: Patient appears in no apparent distress at this time. Patient and/or jb4 family updated on plan of care and expected duration. Pain level reassessed. Patient is alert, oriented x 3, equal unlabored respirations, skin warm/dry/pink. Pt back from CT. at the bedside. 21:36 Reassessment: Patient appears in no apparent distress at this time. Patient and/or jb4 family updated on plan of care and expected duration. Pain level reassessed. Patient is alert, oriented x 3, equal unlabored respirations, skin warm/dry/pink. Vital Signs: 17:40 BP 157 / 81; Pulse 125; Resp 18; Temp 97.3; Pulse Ox 98% on R/A; la1 18:42 BP 148 / 80; Pulse 120; Resp 18; Pulse Ox 96% on R/A; hj 19:42 BP 139 / 82; Pulse 114; Resp 18; Pulse Ox 95% on R/A; jb4 20:59 BP 113 / 66; Pulse 110; Resp 16; Pulse Ox 93% on R/A; jb4 21:35 BP 128 / 65; Pulse 109; Resp 16; Pulse Ox 95% on R/A; jb4 ED Course: 17:35 Patient arrived in ED. sb2 17:36 Carolina Bowman MD is Private Physician. sb2 17:40 Triage completed. la1 17:41 Arm band placed on left wrist. la1 17:42 Kwesi Chu PA is PHCP. cp 17:42 Lux Merchant MD is Attending Physician. cp 17:46 Shyam Bee, JULIA is Primary Nurse. hj 17:47 Patient has correct armband on for positive identification. Placed in gown. Bed in low hj position. Call light in reach. 18:33 XRAY Chest (1 view) In Process Unspecified. EDMS 20:47 CT Abd/Pelvis - W/Contrast: give oral contrast In Process Unspecified. EDMS 22:01 No provider procedures requiring assistance completed. IV discontinued, intact, jb4 bleeding controlled. Administered Medications: 18:35 Drug: Zofran 4 mg Route: IVP; Site: right antecubital; hj 19:07 Follow up: Response: No adverse reaction; Pain is decreased jb4 18:35 Drug: morphine 2 mg Route: IVP; Site: right antecubital; hj 19:08 Follow up: Response: No adverse reaction; Pain is decreased jb4 19:58 Drug: Magnesium Sulfate 1 grams Route: IVPB; Infused Over: 1 hrs; Site: right jb4 antecubital; 21:00 Follow up: Response: No adverse reaction; IV Status: Completed infusion jb4 19:59 Drug: NS 0.9% 500 ml Route: IV; Rate: bolus; Site: right antecubital; jb4 20:30 Follow up: Response: No adverse reaction; IV Status: Completed infusion jb4 20:15 Drug: NS 0.9% 1000 ml Route: IV; Rate: 100 ml/hr; Site: right antecubital; jb4 21:34 Follow up: Response: No adverse reaction; IV Status: Completed infusion jb4 20:30 Drug: Ativan 0.5 mg Route: IVP; Site: right antecubital; jb4 21:35 Follow up: Response: No adverse reaction; Anxiety decreased jb4 21:27 Drug: Lidocaine Gel 2 % 1 ea Volume: 15 ml; Route: Mucous Membrane; jb4 21:35 Follow up: Response: No adverse reaction jb4 21:33 Drug: NS 0.9% 500 ml Route: IV; Rate: bolus; Site: right antecubital; jb4 21:59 Follow up: Response: No adverse reaction; IV Status: Completed infusion jb4 21:53 Drug: Anusol-HC 25 mg 25 mg Route: FL; jb4 21:53 Follow up: Response: No adverse reaction jb4 Point of Care Testing: Guaiac: 18:20 Stool Guaiac: Positive; Stool Hemoccult Control: Pass; aa5 18:20 Completed by SALLY Syed. External hemorrhoid was noted. aa5 Outcome: 21:41 Discharge ordered by . alex 22:01 Discharged to home ambulatory. jb4 22:01 Condition: stable 22:01 Discharge instructions given to patient, family, Instructed on discharge instructions, follow up and referral plans. medication usage, Demonstrated understanding of instructions, follow-up care, medications, Prescriptions given X 1. 22:02 Patient left the ED. jb4 Signatures: Dispatcher [employer] EDMS Yaneli Chowdhury RN RN aa5 Rodríguez Calix RN RN la1 Shyam Bee RN RN Kwesi Castellon PA PA cp Bryson, James, RN RN jb4 Anita Lindsay sb2
[2018-10-04] MEDS ORDERED: HYDROCORTISONE ACETATE 25MG SUPP PR ONE (21:44)
== END 2018-10-04 22:02 | disposition home or self-care (01) ==
LOC: ER 17:31
DX: K56.41 Fecal impaction (principal); Z88.5 Allergy status to narcotic agent
CPT/HCPCS: 36415; 71045; 74177; 80048; 80076; 82272; 83690; 83735; 85025; 85610; 85730; 96361; 96365; 96375; 99283; J2405; J3475; J7030; Q9967